=== PATIENT | male | born 1945 | race Caucasian/White ===

== ENCOUNTER 2017-09-30 07:37 | Day surgery (SDC) | payer MEDICARE, OTHER ==
[~2017-09-30] VITALS: Ht 170.2 cm; Wt 104.8 kg
[2017-09-30] MEDS ORDERED: LEVOTHYROXINE150 MCG PO (08:01)
[2017-09-30] MEDS ORDERED: FUROSEMIDE20 MG PO (08:01)
[2017-09-30] MEDS ORDERED: ZESTORETIC 20-1 EACH PO (08:01)
[2017-09-30] MEDS ORDERED: IBUPROFEN200 M1 PO (08:02)
[2017-09-30] MEDS ORDERED: TOPROL XL50 MG PO (08:02)
--- NOTE | 2017-09-30 10:43 | NUR ---
09/30/17 1042 Anabel Emery 1034 PT ARRIVED ON 3L VIA NC. DROWSY. RESP EVEN AND UNLABORED. 1037 O2 REMOVED, O2 SAT 99%. 1038 PT PASSING GAS/AIR. 1040 MD AT BEDSIDE.
--- NOTE | 2017-10-01 17:13 | OR ---
[facility] [address], [place] [address] Signed DATE OF OPERATION: 09/30/2017 SURGEON: Jose Munguia MD PREOPERATIVE DIAGNOSIS: History of polyps x2. POSTOPERATIVE DIAGNOSES: 1. Extensive diverticulosis. 2. Polyps x1 and sigmoid. PROCEDURE: Total colonoscopy to cecum with cold morcellation polypectomy x1. ANESTHESIA: Intravenous sedation, fentanyl 100 mcg, and Versed 4 mg. INDICATION: This 72-year-old white man is a patient of Dr. Landry Mendez and known to me from the past and undergone colonoscopy in 2010, at which time he was found to have 2 polyps; one in the cecum and another at 20 cm. Both were adenomatous. He has had no symptoms of bleeding, diarrhea, or constipation. He does have family history of colon cancer in his father, who at age 80 of the disease. He was admitted at this time to undergo surveillance colonoscopy, understand the risks of bleeding, infection, and perforation. FINDINGS: The prep was good. Complete colonoscopy was undertaken to the cecum. There were extensive diverticular changes throughout the colon and a small polyp at the sigmoid, which was excised with cold morcellation technique. The remaining colon was normal. DESCRIPTION OF PROCEDURE: The patient was brought to the endoscopy suite and placed in lateral decubitus position given intravenous sedation to the point of slurred speech and nystagmus. Digital rectal examination was normal. An Olympus video colonoscope was passed in the rectum and manipulated throughout the colon ultimately intubating the cecum itself. Numerous diverticula were seen along the way. Irrigation was undertaken. The scope was carefully withdrawn. Examination throughout showed no sign of abnormality until the sigmoid where a small polyp was noted. This was excised with cold morcellation technique. Further withdrawal of scope Electronically Signed By: JOSE MUNGUIA MD 10/01/17 1713 PATIENT NAME: YESI GIL OPERATIVE REPORT DATE OF : 45 REPORT #: [id number] PHYSICIAN: JOSE MUNGUIA MD PCP: LANDRY MENDEZ MD REPORT IS CONFIDENTIAL AND NOT TO BE RELEASED WITHOUT AUTHORIZATION [facility] [address], [place] [address] Signed showed no other abnormality. Retroflexed view of the rectum was normal. Scope was removed and the patient was taken to recovery room in good condition. CONCLUDING DIAGNOSES: 1. Extensive diverticulosis. 2. Small polyp x1. PLAN: Recommend repeat colonoscopy in 5 years or sooner if clinically indicated. Maintain high-fiber diet as well. He will return to the ongoing care of Dr. Mendez. MD OBED Hair/AARON /[id number] cc: Landry Mendez MD Copies: LANDRY MENDEZ MD ~ Electronically Signed By: JOSE MUNGUIA MD 10/01/17 1713 PATIENT NAME: YESI GIL OPERATIVE REPORT DATE OF : 45 REPORT #: [id number] PHYSICIAN: JOSE MUNGUIA MD PCP: LANDRY MENDEZ MD REPORT IS CONFIDENTIAL AND NOT TO BE RELEASED WITHOUT AUTHORIZATION
== END 2017-09-30 11:24 | disposition home or self-care (01) ==
LOC: DS 07:37 → OPS 07:37 → DS 09:00 → OPS 11:24
PROVIDERS: Surgery
PROC: 0DBN8ZZ Excision of Sigmoid Colon, Via Natural or Artificial Opening Endoscopic (ICD-10-PCS; principal; 2017-09-30 09:00)
DX: Z12.11 Encounter for screening for malignant neoplasm of colon (principal); K63.5 Polyp of colon; K57.30 Diverticulosis of large intestine without perforation or abscess without bleeding; I10 Essential (primary) hypertension; E03.9 Hypothyroidism, unspecified; J45.909 Unspecified asthma, uncomplicated; Z86.010 Personal history of colon polyps; Z80.0 Family history of malignant neoplasm of digestive organs; Z88.0 Allergy status to penicillin; Z98.890 Other specified postprocedural states
CPT/HCPCS: 88305; 99153; G0500; J2250; J3010; J7120

== ENCOUNTER 2023-04-14 11:55 | Day surgery (SDC) | payer MEDICARE, OTHER ==
[~2023-04-14] VITALS: Ht 170.2 cm; Wt 103.2 kg
[~2023-04-14 11:55] MED LIST: FUROSEMIDE20 MG PO; IBUPROFEN200 M1 PO; LEVOTHYROXINE150 MCG PO; LIPITOR40 MG PO; METFORMIN HCL500 M2 PO; SILDENAFIL CIT100 MG PO; TOPROL XL50 MG PO; ZESTORETIC 20-1 EACH PO
[2023-04-14 12:21] VITALS: BP 154/90
--- NOTE | 2023-04-14 14:07 | NUR ---
04/14/23 1407 Briseyda Mott 1403-PATIENT ARRIVED TO PACU ON 2L NC RR EVEN. PATIENT AROUSES TO VERBAL STIMULI DROWSY DENIES PAIN OR NAUSEA. IVF INFUSING. LAYING LEFT LATERAL ABDOMEN SOFT. PASSING GAS. ORIENTED TO PACU DOZES BACK TO SLEEP.
[2023-04-14 14:45] VITALS: BP 135/87
--- NOTE | 2023-04-15 19:07 | OR ---
[facility] [address] [place], [place] [address] Signed DATE OF OPERATION: 04/14/2023 SURGEON: Jose Munguia MD PREOPERATIVE DIAGNOSIS: History of colon polyp (adenoma 2011, polyp 2018, hyperplastic and diverticulosis. POSTOPERATIVE DIAGNOSES: 1. Sigmoid and left-sided diverticulosis. 2. Polyps x3. PROCEDURE: Total colonoscopy to cecum with cold morcellation polypectomy x2 and cold snare polypectomy x1. ANESTHESIA: Intravenous sedation fentanyl 100 mcg and Versed 4 mg. INDICATION: A 77-year-old white man is a patient of Dr. Emilie Sutton and here for screening colonoscopy. He has family history of colon cancer in his father who of the disease at age 80. He last underwent colonoscopy in 2018, which showed diverticulosis as well as a single nonadenomatous polyp. He does have history of adenoma x2 in 2010. He is currently symptom free. He understands the risk of bleeding, infection, and perforation related to colonoscopy and wished to proceed. FINDINGS: The prep was good. Complete colonoscopy was undertaken to the cecum without question. He had diverticulosis of the sigmoid and left colon and had three polyps, one in the proximal left colon. The other in the sigmoid and the other in the distal sigmoid, all excised completely. PROCEDURE IN DETAIL: The patient was brought to the endoscopy suite and placed in lateral decubitus position given intravenous sedation to the point of slurred speech and nystagmus. Digital rectal examination was normal. An Olympus video colonoscope was passed in the rectum and manipulated into the sigmoid where diverticulosis was noted. The scope was advanced ultimately to the cecum. The ileocecal valve and appendiceal orifice were normal. The scope was withdrawn from that Electronically Signed By: JOSE MUNGUIA MD 04/15/23 1907 PATIENT NAME: YESI GIL OPERATIVE REPORT DATE OF : 45 REPORT #: [id number] PHYSICIAN: JOSE MUNGUIA MD PCP: EMILIE SUTTON MD REPORT IS CONFIDENTIAL AND NOT TO BE RELEASED WITHOUT AUTHORIZATION [facility] [address] [place], [place] [address] Signed point and examination undertaken showing a small hyperplastic appearing polyp of proximal descending colon. This was excised with cold morcellation technique. Further withdrawal showed another somewhat similar polyp. It too was excised with cold morcellation technique. Further withdrawal allowed for good visualization of sigmoid with numerous diverticula. A polyp with some pedunculated stalk was noted. This was cauterized with cold snare technique without problem. Further withdrawal out retroflexed view of the rectum, which was essentially normal. Scope was removed. The patient was taken to recovery room in good condition. CONCLUDING DIAGNOSES: 1. Diverticulosis. 2. Polyps x3. PLAN: Recommend repeat colonoscopy in 5 years based on his family history and findings of polyps at this time. He will return to the ongoing care of Dr. Sutton otherwise. MD OBED Hair/AARON /[id number] cc: Emilie Sutton MD Copies: EMILIE SUTTON DMD ~ Electronically Signed By: JOSE MUNGUIA MD 04/15/23 1907 PATIENT NAME: YESI GIL W OPERATIVE REPORT DATE OF : 45 REPORT #: [id number] PHYSICIAN: JOSE MUNGUIA MD PCP: EMILIE SUTTON MD REPORT IS CONFIDENTIAL AND NOT TO BE RELEASED WITHOUT AUTHORIZATION
--- NOTE | 2023-04-19 17:18 | PATH ---
[facility] [address] [place], [place] [address] Signed SPECIMEN(S): A DESCENDING/LEFT COLON POLYP SPECIMEN(S): B SIGMOID POLYP SPECIMEN(S): C SIGMOID POLYP SPECIMEN SOURCE: A. DESCENDING/LEFT COLON POLYP B. SIGMOID POLYP C. SIGMOID POLYP CLINICAL HISTORY: Pre: Hx polyps and diverticulosis. Post: Polyps x 3 and diverticulosis. FINAL PATHOLOGIC DIAGNOSIS: A. Descending / left colon polyp: - Tubular adenoma (two fragments). B. Sigmoid polyp: - Tubular adenoma (one fragment). C. Sigmoid polyp: - Tubular adenoma (one fragment). JVR:[facility] MICROSCOPIC EXAMINATION: Histologic sections of all submitted blocks are examined by light microscopy. These findings, together with the gross examination, support the pathologic diagnosis. GROSS DESCRIPTION: A. The specimen, labeled and designated "[place], descending/left colon polyp," is received in formalin and consists of four benjamin soft tissue fragments, ranging from 0.1-0.2 cm. Entirely submitted in (A1). B. The specimen, labeled and designated "[place], sigmoid polyp," is received in formalin and consists of two benjamin soft tissue fragments, ranging from 0.2-0.4 cm. Entirely submitted in (B1). C. The specimen, labeled and designated "[place], sigmoid polyp," is received in formalin and consists of a polyp of benjamin soft tissue (0.7 x 0.6 x 0.5 cm). The resection margin is inked blue, and the tissue is trisected to reveal benjamin soft cut surfaces. The specimen is submitted entirely in cassette (C1). VB (under the direct supervision of a pathologist) The Gross Description was prepared using a voice recognition system. The report PATIENT NAME: YESI GIL PATHOLOGY DATE OF : 45 REPORT #: [id number] PHYSICIAN: NE PATHOLOGY PCP: EMILIE SUTTON MD REPORT IS CONFIDENTIAL AND NOT TO BE RELEASED WITHOUT AUTHORIZATION [facility] [address] [place], [place] [address] Signed was reviewed for accuracy; however, sound-alike word errors, addition and/or deletions may occur. If there is any question about this report, please contact Client Services. PERFORMING LABORATORY: Technical component was performed by [facility], [address] [place] [address] (CLIA# [id number]). Professional interpretation was performed by [facility] - [facility], [address] [place] [id number] (CLIA#: [id number]). Diagnostician: Compa Schafer MD Pathologist Electronically Signed 04/19/2023 Copies: ~ PATIENT NAME: YESI GIL PATHOLOGY DATE OF : 45 REPORT #: [id number] PHYSICIAN: NE PATHOLOGY PCP: EMILIE SUTTON MD REPORT IS CONFIDENTIAL AND NOT TO BE RELEASED WITHOUT AUTHORIZATION
== END 2023-04-14 15:11 | disposition home or self-care (01) ==
LOC: OPS 11:55 → DS 11:55 → OPS 13:00 → DS 13:00 → OPS 15:11
PROVIDERS: ATTEND Surgery
PROC: 0DBN8ZX Excision of Sigmoid Colon, Via Natural or Artificial Opening Endoscopic, Diagnostic (ICD-10-PCS; 2023-04-14)
PROC: 0DBM8ZX Excision of Descending Colon, Via Natural or Artificial Opening Endoscopic, Diagnostic (ICD-10-PCS; principal; 2023-04-14 13:00)
DX: Z12.11 Encounter for screening for malignant neoplasm of colon (principal); D12.5 Benign neoplasm of sigmoid colon; D12.4 Benign neoplasm of descending colon; K57.30 Diverticulosis of large intestine without perforation or abscess without bleeding; Z86.010 Personal history of colon polyps; Z80.0 Family history of malignant neoplasm of digestive organs; Z90.49 Acquired absence of other specified parts of digestive tract; I10 Essential (primary) hypertension; E03.9 Hypothyroidism, unspecified; E11.9 Type 2 diabetes mellitus without complications; J45.909 Unspecified asthma, uncomplicated; Z88.0 Allergy status to penicillin; Z79.890 Hormone replacement therapy; Z79.84 Long term (current) use of oral hypoglycemic drugs; Z79.899 Other long term (current) drug therapy
CPT/HCPCS: 88305; 99153; G0500; J2250; J3010; J7121